=== PATIENT | male | born 1940 | race Caucasian/White ===

== ENCOUNTER 2022-04-14 16:09 | Emergency (ER) | payer OTHER ==
[2022-04-14 16:20] VITALS: BP 148/88; PULSE 72; RESP 18; TEMP 98.9; BMI 22.1
[2022-04-14] MEDS ORDERED: SILVER SULFADIAZINE 1% TOP CREAM 50 GM JAR TP ONE ×2 (16:30→16:39)
[2022-04-14] MEDS ORDERED: DIPHTH,PERTUSS(ACELL),TET 0.5 ML DISP.SYRIN IM ONE ×2 (16:30→16:40)
== END 2022-04-14 17:23 | disposition home or self-care (01) ==
LOC: FER 16:09
PROC: 3E0234Z Introduction of Serum, Toxoid and Vaccine into Muscle, Percutaneous Approach (ICD-10-PCS; principal; 2022-04-14)
DX: T24.102A Burn of first degree of unspecified site of left lower limb, except ankle and foot, initial encounter (principal); T24.121A Burn of first degree of right knee, initial encounter; X08.8XXA Exposure to other specified smoke, fire and flames, initial encounter
CPT/HCPCS: 90471; 90715; 99284-25